=== PATIENT | female | born 2000 | race Hispanic/Latino ===

== ENCOUNTER 2022-04-26 21:37 | Emergency (ER) | payer BC ==
[2022-04-27] MEDS ORDERED: Ondansetron ODT 4 MG TAB ONE (02:25)
[2022-04-27] MEDS ORDERED: Dexamethasone 4 MG TAB ONE (02:25)
[2022-04-27] MEDS ORDERED: Ibuprofen 200 MG TAB ONE (02:26)
== END 2022-04-27 03:26 | disposition home or self-care (01) ==
LOC: CSHERS 21:37
DX: J11.1 Influenza due to unidentified influenza virus with other respiratory manifestations (principal); E86.0 Dehydration
CPT/HCPCS: 93005; J8540; Q0162